=== PATIENT | female | born 1970 | race Caucasian/White ===

== ENCOUNTER → 2016-09-25 | Outpatient (CLI) | payer OTHER ==
[~2016-09-25] MED LIST: RIZA10TA18 PO
[2016-09-25 12:55] LABS: THYROID STIMULATING HORMONE 1.36 uIu/ml (0.300-4.500)
== END | disposition home or self-care (01) ==
LOC: C.LAB1850 11:07
PROVIDERS: ATTEND Psychiatry & Neurology Psychiatry
DX: F41.1 Generalized anxiety disorder (principal)

== ENCOUNTER → 2016-09-25 | Outpatient (CLI) | payer OTHER | END | disposition home or self-care (01) | LOC: C.PAPS 14:18 | PROVIDERS: ATTEND Physician Assistant | DX: Z12.4 Encounter for screening for malignant neoplasm of cervix (principal) ==

== ENCOUNTER → 2016-10-21 | Outpatient (CLI) | payer OTHER ==
--- NOTE | 2016-10-21 15:51 | MAMMOGRAPHY REPORT ---
BILATERAL DIGITAL SCREENING MAMMOGRAM TOMOSYNTHESIS WITH CAD: 10/21/2016 CLINICAL HISTORY: Routine screening. Patient has no complaints. TECHNIQUE: Breast tomosynthesis in addition to standard 2D mammography was performed. Current study was also evaluated with a Computer Aided Detection (CAD) system. COMPARISON: Comparison is made to exams dated: 08/22/2011 ultrasound and 08/22/2011 mammogram - [facility]. BREAST COMPOSITION: The tissue of both breasts is heterogeneously dense, which may obscure small mas ses. FINDINGS: No suspicious mass, architectural distortion or cluster of microcalcifications is seen. IMPRESSION: ACR BI-RADS CATEGORY 1: NEGATIVE There is no mammographic evidence of malignancy. A 1 year screening mammogram is recommended. The pa tient will receive written notification of the results. Approximately 10% of breast cancers are not detected with mammography. A negative mammographic report should not delay biopsy if a clinically suggestive mass is present. Miriam augustin/kyle:10/21/2016 15:31:42 Credit Verifier: Sherrell BLOCK(Sabine)(M), [facility] letter sent: Normal 1/2 BI-RADS Code: ACR BI-RADS Category 1: Negative
== END | disposition home or self-care (01) ==
LOC: C.MAMM 14:24
PROVIDERS: ATTEND Internal Medicine
DX: Z12.31 Encounter for screening mammogram for malignant neoplasm of breast (principal)

== ENCOUNTER 2017-03-11 17:07 | Emergency (ER) | payer OTHER ==
[2017-03-11 17:18] VITALS: TEMP 36.5
[2017-03-11] MEDS ORDERED: DiphenhydrAMINE HCL 50 MG/ML VIAL IV STA (17:39)
[2017-03-11] MEDS ORDERED: KETOROLAC TROMETHAMINE 30 MG/ML VIAL IV STA (17:39)
[2017-03-11] MEDS ORDERED: PROCHLORPERAZINE 5 MG/ML 2 ML VIAL IV STA (17:39)
[2017-03-11] MEDS ORDERED: LXP10 PO (17:50)
[2017-03-11] MEDS ORDERED: VLT50 PO (17:50)
--- NOTE | 2017-03-11 18:00 | DIAGNOSTIC IMAGING REPORT ---
HEAD WITHOUT CONTRAST (CT) CLINICAL HISTORY: 46 years-old Female with ESTRELLA . Acute headache. Initial exam. TECHNIQUE: Multiple axial CT images of the head were obtained without contrast. A dose lowering technique was utilized adhering to the principles of ALARA. CT DOSE: 537.48 mGy.cm COMPARISON: Brain MRI 02/02/2006. FINDINGS: No acute intracranial hemorrhage, midline shift, intracranial mass, hydrocephalus, territorial ischemia or abnormal extra-axial collection. The calvarium is intact. The paranasal sinuses, mastoid air cells, and middle ear cavities are clear. IMPRESSION: No acute intracranial abnormality. The above report was generated using voice recognition software. It may contain grammatical, syntax or spelling errors. Electronically signed by: John Brewer M.D. 03/11/2017 5:58 PM Dictated Date/Time: 03/11/2017 5:56 PM
[2017-03-11 19:17] VITALS: BP 123/80; PULSE 81; O2SAT 98
--- NOTE | 2017-03-11 23:14 | EMERGENCY ROOM VISIT NOTE ---
History Report prepared by Toyin: Terese De Anda Under the Supervision of: Junie RojasO. First contact with patient: 17:29 Chief Complaint: HEADACHE Stated Complaint: MIGRAINE History of Present Illness The patient is a 46 year old female who presents to the Emergency Room with complaints of a worsening headache beginning this morning. She reports a history of migraines and states that she gets them everyday. The patient reports that her headache today is much because she was unable to take her medicine. She notes that when she does not have this medicine this is how her migraines become. She states that she normally takes medicine for her migraines , but that she did not have the medication today. She reports that light and noise bothers her. The patient denies new numbness and weakness. She reports having the chills, but denies having changes in vision and fevers. No neck stiffness. Source of History: patient Onset: this morning Position: head Quality: other (headache) Timing: worsening Associated Symptoms: + chills, No fevers, No weakness, No numbness Review of Systems See HPI for pertinent positives & negatives. A total of 10 systems reviewed and were otherwise negative. Past Medical & Surgical Medical Problems: (1) Migraine Family History Patient reports no known family medical history. Social History Smoking Status: Never Smoker Alcohol Use: none Drug Use: none Marital Status: Occupation Status: unemployed Current/Historical Medications Scheduled Diclofenac Sod (Diclofenac Sodium Dr), 50 MG PO DAILY Escitalopram Oxalate (Escitalopram Oxalate), 10 MG PO DAILY Allergies Coded Allergies: Penicillins (Verified Allergy, Severe, RASH + SOB WITH AMPICILLIN/ PENICILLIN, 03/11/17) Acetaminophen (Verified Allergy, Mild, RASH, 03/11/17) Lidocaine (Verified Adverse Reaction, Intermediate, BRADYCARDIA, 03/11/17) Procaine (Verified Adverse Reaction, Intermediate, BRADYCARDIA, 03/11/17) Physical Exam Vital Signs Date Time Temp Pulse Resp B/P (MAP) Pulse Ox O2 Delivery O2 Flow Rate FiO2 03/11/17 19:17 81 18 123/80 98 03/11/17 17:18 36.5 74 18 148/83 98 Room Air Physical Exam GENERAL: Laying in bed on her left side with the lights off, alert, well appearing, well nourished, no distress, non-toxic EYE EXAM: normal conjunctiva. PERRL and EOM's intact. OROPHARYNX: no exudate, no erythema, lips, buccal mucosa, and tongue normal and mucous membranes are moist NECK: supple, no nuchal rigidity, no adenopathy, non-tender LUNGS: Clear to auscultation. Normal chest wall mechanics HEART: no murmurs, S1 normal and S2 normal ABDOMEN: abdomen soft, non-tender, normo-active bowel sounds, no masses, no rebound or guarding. BACK: Back is symmetrical on inspection and there is no deformity, no midline tenderness, no CVA tenderness. SKIN: no rashes and no bruising UPPER EXTREMITIES: upper extremities are grossly normal. LOWER EXTREMITIES: No pitting edema. NEURO EXAM: Normal sensorium, cranial nerves II-XII intact, normal speech, no weakness of arms, no weakness of legs. No drift. Finger to nose intact. Gross sensation intact. Medical Decision & Procedures ER Provider Diagnostic Interpretation: Radiology results as stated below per my review and the radiologist's interpretation: HEAD WITHOUT CONTRAST (CT) CLINICAL HISTORY: 46 years-old Female with ESTRELLA . Acute headache. Initial exam. TECHNIQUE: Multiple axial CT images of the head were obtained without contrast. A dose lowering technique was utilized adhering to the principles of ALARA. CT DOSE: 537.48 mGy.cm COMPARISON: Brain MRI 02/02/2006. FINDINGS: No acute intracranial hemorrhage, midline shift, intracranial mass, hydrocephalus, territorial ischemia or abnormal extra-axial collection. The calvarium is intact. The paranasal sinuses, mastoid air cells, and middle ear cavities are clear. IMPRESSION: No acute intracranial abnormality. The above report was generated using voice recognition software. It may contain grammatical, syntax or spelling errors. Electronically signed by: John Brewer M.D. 03/11/2017 5:58 PM Dictated Date/Time: 03/11/2017 5:56 PM Medications Administered Medications (Trade) Dose Ordered Sig/Shari Route Start Time Stop Time Status Last Admin Dose Admin Prochlorperazine Edisylate (Compazine Inj) 10 mg NOW STAT IV 03/11/17 17:39 03/11/17 17:41 DC 03/11/17 18:15 10 MG Diphenhydramine HCl (Benadryl Inj) 50 mg NOW STAT IV 03/11/17 17:39 03/11/17 17:41 DC 03/11/17 18:15 50 MG Ketorolac Tromethamine (Toradol Inj) 30 mg NOW STAT IV 03/11/17 17:39 03/11/17 17:41 DC 03/11/17 18:16 30 MG ED Course ED COURSE: Vital signs were reviewed and showed normal vitals. The patients medical record was reviewed The above diagnostic studies were performed and reviewed. ED treatments and interventions as stated above. 0: The patient was evaluated in room C3. A complete history and physical examination was performed. 1738: Ordered Toradol Inj 30 mg IV, Benadryl Inj 50 mg IV, Compazine Inj 10 mg IV. 183: I checked on the patient and she is feeling better. After I explained the risks and benefits of an LP, the patient declined. 1900: Upon reevaluation, the patient is feeling better. I discussed the findings and the treatment plan with the patient. She verbalizes agreement and understanding. She was discharged home. Medical Decision Differential Diagnosis includes but is not limited to headache, tension headache , cluster headache, migraine, subarachnoid hemorrhage, meningitis, mass, central venous thrombus, concussion, trauma and epidural/subdural hemorrhage. Patient is a 46-year-old female who presents to ER for migraine. She notes that she gets headaches every day. This headache is worse than her typical daily headaches. She has before in the past and it normally occurs when she does not have her medication runs out. She was unable to fill or take her medication today. She is unaware of exactly what it is. She is completely neurologically intact. No fevers. No signs meningitis or encephalitis. CT head was performed and was negative. She was given IV Benadryl, Compazine and fluids. She felt significant better. I discussed performing an LP with her to rule out possible bleed as she said this is worsening her typical daily headaches. She declined. Risk and benefits were explained. She was discharged to follow-up with her PCP and return with any worsening symptoms. Discussed with Pt concerning signs and symptoms to watch out for. Pt was instructed to follow up with their PCP and discussed with the patient their option to return to the ED at anytime for persistent or worsening symptoms. The appropriate anticipatory guidance and out-patient management, including indications for return to the emergency department, were explained at length to the patient and understood. Medication Reconcilliation Current Medication List: was personally reviewed by me Blood Pressure Screening Patient's blood pressure: Normal blood pressure Impression Primary Impression: Cephalgia Scribe Attestation The scribe's documentation has been prepared under my direction and personally reviewed by me in its entirety. I confirm that the note above accurately reflects all work, treatment, procedures, and medical decision making performed by me. Departure Information Dispostion Home / Self-Care Referrals Lori Nails M.D. (PCP) Forms HOME CARE DOCUMENTATION FORM, IMPORTANT VISIT INFORMATION Patient Instructions Headache Pain, My [facility] Additional Instructions Please follow up with your primary care doctor with in the next 24 hours. Any worsening of your symptoms, please return to the ED immediately. This includes any fevers greater than 100.4, worsening pain, weakness or numbness in your arms or legs, chest pain, shortness breath, persistent nausea, vomiting, unable to eat or drink, or any other concerning signs or symptoms from your standpoint. Please do not drive, work, operate heavy machinery for the next 12 hours. Problem Qualifiers Primary Impression: Cephalgia Headache type: unspecified Headache chronicity pattern: acute headache Intractability: not intractable Qualified Codes: R51 - Headache
== END 2017-03-11 19:18 | disposition home or self-care (01) ==
LOC: C.EDB 17:08 → C.EDC 19:18
DX: G44.009 Cluster headache syndrome, unspecified, not intractable (principal)

== ENCOUNTER 2017-03-18 13:42 | Emergency (ER) | payer OTHER ==
[~2017-03-18 13:42] MED LIST changes: +LXP10 PO; -RIZA10TA18 PO; +VLT50 PO
[2017-03-18 14:02] VITALS: TEMP 36.6
[2017-03-18] MEDS ORDERED: MELA1TAB5 PO (14:11)
[2017-03-18] MEDS ORDERED: KETOROLAC TROMETHAMINE 60 MG/2 ML VIAL IM STA (14:35)
--- NOTE | 2017-03-18 15:07 | EMERGENCY ROOM VISIT NOTE ---
ED Visit Note First contact with patient: 14:07 CHIEF COMPLAINT: "I think one of my discs has slipped" HISTORY OF PRESENT ILLNESS: This 46-year-old female patient presents to the emergency department, ambulatory, complaining of pain in the low back which began earlier today. Of note, the patient's primary language is [place], and the history is obtained through the opener tender. The patient has a history of herniated disks at L4 and L5. She states earlier today, she leaned over and lifted a 1 gallon bottle of water. She states she was not careful, and when she stood back up, she began experiencing significant pain. The patient states she is having difficulty with sitting from a lying position or standing from a sitting position, and these positional changes are the only time she has pain. The patient has no pain with lying flat, sitting straight, or standing and walking. The patient notes the pain as sharp and a 9/10. The patient has taken her regularly prescribed diclofenac without relief of the pain. The patient denies any loss of control of their bowel or bladder functions. There has been no leg numbness or weakness, and no change in sensation. The patient states on occasion, she will get some numbness and tingling radiating down her bilateral legs, but she is not experiencing any of this today. No nausea or vomiting or abdominal pain. No chest pain or shortness of breath. The patient has had prior back injuries. No dysuria or increased urinary frequency. The patient does see Dr. Nails regarding her chronic back pain. She was last seen last week, but that was for a migraine. REVIEW OF SYSTEMS: A 10 system review of systems was performed with positives and pertinent negatives listed in the history of present illness. All other systems were reviewed and are negative. ALLERGIES: Acetaminophen, lidocaine, procaine, penicillins MEDICATIONS: Diclofenac, Lexapro PMH: Migraines, chronic low back pain SOCIAL HISTORY: The patient lives locally with family. She denies drug, alcohol , tobacco use. PHYSICAL EXAM: VITALS: Vitals are noted on the nurse's note and reviewed by myself. Vital signs stable. GENERAL: This is a 46-year-old [place] female, in no acute distress, nondiaphoretic, well-developed well-nourished. SKIN: The skin was without rashes, erythema, edema, or bruising. Capillary refill less than 2 seconds. NECK: Supple without nuchal rigidity. No cervical spine tenderness. No paraspinous muscle tenderness. HEART: Regular rate and rhythm without murmurs gallops or rubs. LUNGS: Clear to auscultation bilaterally without wheezes, rales or rhonchi. ABDOMEN: Positive bowel sounds x 4. Normal tympanic percussion. Soft, nontender, without masses or organomegaly. Kasper sign negative. MUSCULOSKELETAL: No muscle atrophy, erythema, or edema noted of the back. There is no tenderness over the lumbar spinous processes. There is mild tenderness over the paraspinous muscles bilaterally, worse on the right. There is no tenderness over the thoracic spine or paraspinous muscles. There are no muscle spasms present. The patient is slow to move around with maximum tenderness with any position changes as noted above. Negative straight leg raise test. NEURO: Patient was alert and oriented to person place and time. Normal sensation to light and sharp touch. Deep tendon reflexes 2+ in the lower extremities. Dorsalis pedis pulse 2+ bilaterally. Strength 5/5 and equal in the bilateral lower extremities. RADIOLOGY: L-SPINE MIN 4 VIEWS ROUTINE HISTORY: 46 years-old Female low back pain acute low back pain COMPARISON: CT abdomen and pelvis 01/06/2008 TECHNIQUE: 5 views of the lumbar spine FINDINGS: No evidence of spondylolysis or spondylolisthesis. No acute fracture or subluxation. Moderate intervertebral disc space narrowing with endplate spurring at T11-T12. Mild multilevel endplate degenerative changes of the lumbar spine. Soft tissues are unremarkable. IMPRESSION: Mild degenerative changes about acute fracture or subluxation. The above report was generated using voice recognition software. It may contain grammatical, syntax or spelling errors. Electronically signed by: John Brewer M.D. 03/18/2017 3:13 PM Dictated Date/Time: 03/18/2017 3:07 PM EMERGENCY DEPARTMENT COURSE: The patient was seen and evaluated as above. She was given a dose of 60 mg Toradol IM. The patient was feeling modestly improved. I discussed the findings of the x-ray with the patient at bedside. She did not wish to use the opener tender at this time, and verbalized all of her understanding. The patient states she plans on seeing her psychiatrist tomorrow , who is [place] and generally spends time discussing findings from other providers with the patient. She states she will discuss her symptoms with him tomorrow. She was educated on concerning symptoms for which to return and again , verbalizes understanding. The patient will be started on a Medrol Dosepak and follow-up outpatient with Dr. Nails and consider follow-up with spine surgeon. Discharge instructions reviewed and the patient was discharged home in good condition. I attest that I have personally reviewed the patient's current medication list. Patient was found to have normal blood pressure on screening and does not require follow-up. DIFFERENTIAL DIAGNOSIS: Strain, fracture, disc protrusion, disc herniation, malignancy, abscess, infection, and others DIAGNOSIS: Lumbar strain Problem List Medical Problems: (1) Migraine Status: Chronic Current/Historical Medications Scheduled Diclofenac Sod (Diclofenac Sodium Dr), 50 MG PO DAILY Escitalopram Oxalate (Escitalopram Oxalate), 10 MG PO DAILY Melatonin (Kp Melatonin), 3 MG PO HS Methylprednisolone (Medrol Dosepak), 0 PO DAILY Allergies Coded Allergies: Penicillins (Verified Allergy, Severe, RASH + SOB WITH AMPICILLIN/ PENICILLIN, 03/11/17) Acetaminophen (Verified Allergy, Mild, RASH, 03/11/17) Lidocaine (Verified Adverse Reaction, Intermediate, BRADYCARDIA, 03/11/17) Procaine (Verified Adverse Reaction, Intermediate, BRADYCARDIA, 03/11/17) Vital Signs Date Time Temp Pulse Resp B/P (MAP) Pulse Ox O2 Delivery O2 Flow Rate FiO2 03/18/17 15:47 77 17 128/89 94 Room Air 03/18/17 14:02 36.6 89 18 130/81 97 Room Air Medications Administered Medications (Trade) Dose Ordered Sig/Shari Route Start Time Stop Time Status Last Admin Dose Admin Ketorolac Tromethamine (Toradol Inj) 60 mg NOW STAT IM 03/18/17 14:35 03/18/17 14:36 DC 03/18/17 14:53 60 MG Departure Information Impression Primary Impression: Strain of lumbar region Dispostion Home / Self-Care Condition GOOD Prescriptions Methylprednisolone (MEDROL DOSEPAK) 4 Mg Zafar 0 PO DAILY, #1 PKT Prov: Jenise Jarvis, JAM 03/18/17 Referrals Lori Nails M.D. (PCP) Jacob Nath, DO Patient Instructions ED Low Back Pain Injury, My [facility] Additional Instructions You have been treated in the Emergency Department for Back Pain. X-ray did rule out acute fracture or other injury. There was some moderate intervertebral disc space narrowing with endplate spurring at T11-T12. Mild multilevel endplate degenerative changes of the lumbar spine. These injuries appear to be chronic, however, you may need to have updated MRI performed outpatient. You should follow-up with Dr. Nails and/or a spine surgeon (one you have seen previously, or Dr. Nath). You have been prescribed a Medrol Dosepak. This is a steroid which will help decrease your inflammation and pain. Take the medicine as prescribed. Take the ENTIRE 6 day course of the steroids. Do not take NSAIDs such as diclofenac, ibuprofen, naproxen, Advil, Aleve, or Motrin while taking Medrol Dosepak. You may take Tylenol while on this medication. For pain control, you can use the following urql-phe-[id number] medicines (if >12 yo): Ibuprofen(Motrin, Advil) may be used for fever or pain. Use 600mg every six hours as needed. Take with food. Avoid using more than 2400mg in a 24 hour period. Do not use 2400mg per day for more than three consecutive days without physician direction. Prolonged inappropriate use can lead to stomach upset or ulcers. (AND/OR) Acetaminophen(Tylenol) may be used for fever or pain. Use 1000mg every six hours as needed. Avoid using more than 3000mg in a 24 hour period. If this is an acute injury, ice can be applied to the area of pain for the first 3 days to help decrease pain and inflammation. After the first 3 days, a heating pad can be used over the area for continued soothing relief. You should schedule a follow-up appointment in 2-3 days with your Primary Care Provider for further evaluation and treatment of your back pain. You may want to consider follow-up with a spine surgeon. You have been provided the information for a local spine surgeon. Return to the Emergency Department if your current symptoms worsen despite treatment course outlined above, or if you develop any of the following symptoms : intractable pain despite aforementioned treatment course, loss of control of your bowel or bladder, numbness or tingling in your groin, or development of a fever. Problem Qualifiers Primary Impression: Strain of lumbar region Encounter type: initial encounter Qualified Codes: S39.012A - Strain of muscle, fascia and tendon of lower back, initial encounter
--- NOTE | 2017-03-18 15:14 | DIAGNOSTIC IMAGING REPORT ---
L-SPINE MIN 4 VIEWS ROUTINE HISTORY: 46 years-old Female low back pain acute low back pain COMPARISON: CT abdomen and pelvis 01/06/2008 TECHNIQUE: 5 views of the lumbar spine FINDINGS: No evidence of spondylolysis or spondylolisthesis. No acute fracture or subluxation. Moderate intervertebral disc space narrowing with endplate spurring at T11-T12. Mild multilevel endplate degenerative changes of the lumbar spine. Soft tissues are unremarkable. IMPRESSION: Mild degenerative changes about acute fracture or subluxation. The above report was generated using voice recognition software. It may contain grammatical, syntax or spelling errors. Electronically signed by: John Brewer M.D. 03/18/2017 3:13 PM Dictated Date/Time: 03/18/2017 3:07 PM
[2017-03-18] MEDS ORDERED: METH4PAK PO (15:29)
[2017-03-18 15:47] VITALS: BP 128/89; PULSE 77; O2SAT 94
== END 2017-03-18 15:16 | disposition home or self-care (01) ==
LOC: C.EDB 13:44 → C.EDD 15:16
DX: S39.012A Strain of muscle, fascia and tendon of lower back, initial encounter (principal); X50.1XXA Overexertion from prolonged static or awkward postures, initial encounter; Y92.9 Unspecified place or not applicable; G43.909 Migraine, unspecified, not intractable, without status migrainosus; Z79.899 Other long term (current) drug therapy

== ENCOUNTER → 2017-03-25 | Outpatient (CLI) | payer OTHER ==
[~2017-03-25] MED LIST changes: +MELA1TAB5 PO; +METH4PAK PO
--- NOTE | 2017-03-25 12:00 | DIAGNOSTIC IMAGING REPORT ---
LUMBAR SPINE W/O CONTRAST CLINICAL HISTORY: 46 years-old Female presenting with ACUTE B/L LOWER BACK PAIN,RT SIDED SICATICA, lifting injury one week ago. TECHNIQUE: Multisequence, multiplanar MR imaging of the lumbar spine was performed without the use of intravenous contrast. IV contrast: None. COMPARISON: Plain radiographs of the lumbar spine from 03/18/2017. FINDINGS: Localizer images: Unremarkable. Normal lumbar lordosis. Vertebral bodies maintain normal height, alignment, and bone marrow signal intensity with the exception of benign hemangiomas noted in L1, L4, and L5. Intervertebral disc desiccation at L2-3 through L4-5. Annular fissures suggested at L3-4 and L4-5. No evidence of acute fracture or subluxation. Degenerative changes further detailed below: L1-2: No significant neural foraminal or spinal canal narrowing. L2-3: Minimal disc bulge. No significant neural foraminal or spinal canal narrowing. L3-4: Minimal disc bulge. No significant neural foraminal or spinal canal narrowing. L4-5: Minimal disc bulge and ligamentum flavum hypertrophy. Mild bilateral neural foraminal narrowing. No evidence of mass effect on the exiting L4 nerve roots. L5-S1: No significant neural foraminal or spinal canal narrowing. The spinal cord ends in good position at L1. Cauda equina normal in morphology. No epidural collection. Paraspinal soft tissues without evidence of edema or significant abnormality allowing for noncontrast technique. IMPRESSION: Minimal multilevel degenerative changes with mild bilateral neural foraminal narrowing at L4-5. No evidence of acute osseous or ligamentous injury. Electronically signed by: Sukumar Caldwell M.D. 03/25/2017 11:59 AM Dictated Date/Time: 03/25/2017 11:54 AM
== END | disposition home or self-care (01) ==
LOC: C.MRI 10:45
PROVIDERS: ATTEND Internal Medicine
DX: M54.41 Lumbago with sciatica, right side (principal); G89.29 Other chronic pain

== ENCOUNTER 2017-08-08 22:20 | Emergency (ER) | payer OTHER ==
[~2017-08-08] VITALS: Ht 180.3 cm; Wt 76.9 kg
[~2017-08-08 22:20] MED LIST changes: -METH4PAK PO
[2017-08-08 22:23] VITALS: TEMP 36.4; Ht 180.3 cm; Wt 76.9 kg
[2017-08-08 23:27] LABS: BASO % 0.3 %; BASO ABS # 0.02 K/uL (0-0.2); HEMATOCRIT 37.9 % (37-47); HEMOGLOBIN 13.2 g/dL (12.0-16.0); IG# 0.01 K/uL (0.00-0.02); LYMPH % 16.4 %; LYMPH ABS # 1.08 K/uL (1.2-3.4); MEAN CELL VOLUME 92.2 fL (80-100); MEAN CORPUSCULAR HEMOGLOBIN 32.1 pg (25-34); MEAN CORPUSCULAR HGB CONC 34.8 g/dl (32-36); MEAN PLATELET VOLUME 10.1 fL (7.4-10.4); MONO % 6.4 %; MONO ABS # 0.42 K/uL (0.11-0.59); NEUT % 76.7 %; NEUT ABS # 5.07 K/uL (1.4-6.5); PLATELET COUNT 256 K/uL (130-400); RED CELL DISTRIBUTION WIDTH CV 13.5 % (11.5-14.5); RED CELL DISTRIBUTION WIDTH SD 45.4 fL (36.4-46.3)
[2017-08-08 23:47] LABS: ALBUMIN 3.8 gm/dl (3.4-5.0); CREATININE 0.74 mg/dl (0.60-1.20); POTASSIUM 3.4 mmol/L (3.5-5.1)
[2017-08-08 23:57] LABS: TOTAL PROTEIN 8.3 gm/dl (6.4-8.2)
[2017-08-09] MEDS ORDERED: LORAZEPAM 1 MG TAB PO STA (00:47)
--- NOTE | 2017-08-09 01:41 | EMERGENCY ROOM VISIT NOTE ---
History First contact with patient: 22:35 Chief Complaint: ANXIETY Stated Complaint: PAINC ATTACK History of Present Illness The patient is a 46 year old female who presents to the Emergency Room with complaints of a panic attack. The patient reports that she feels like she has had panic attacks throughout the day today. She describes these as a feeling like she is unable to calm down. She also develops tightness in the center of her chest. She has had a dry mouth and has had a decreased appetite. She becomes nauseous at times. She took her blood pressure at home and it was 125/ 82, which the patient states is high for her. She does state that her symptoms resolved before coming to the ER, although she does still feel slightly anxious. She reports increased stress recently, as a close friend's son recently . She is also concerned that she could have diabetes or something else causing her to feel the symptoms. She does admit to a history of anxiety and depression but is not currently on any daily medication for this. She denies feeling increasingly depressed. She adamantly denies suicidal or homicidal ideations. Review of Systems A complete 10 point review of systems was reviewed with the patient with pertinent positives and negatives as per history of present illness. All else were negative. Past Medical/Surgical History Medical Problems: (1) Migraine Family History Patient reports no known family medical history. Social History Smoking Status: Never Smoker Alcohol Use: none Drug Use: none Marital Status: Occupation Status: unemployed Current/Historical Medications Scheduled Diclofenac Sod (Diclofenac Sodium Dr), 50 MG PO DAILY Escitalopram Oxalate (Escitalopram Oxalate), 10 MG PO DAILY Melatonin (Kp Melatonin), 3 MG PO HS Physical Exam Vital Signs Date Time Temp Pulse Resp B/P (MAP) Pulse Ox O2 Delivery O2 Flow Rate FiO2 08/09/17 01:58 86 20 129/77 95 Room Air 08/08/17 23:53 86 20 136/81 98 Room Air 08/08/17 22:23 36.4 82 18 134/83 97 Room Air Physical Exam VITALS: Vitals are noted on the nurse's note and reviewed by myself. Vital signs stable. GENERAL: This is a 46-year-old female, in no acute distress but anxious appearing, well-developed well-nourished. SKIN: The skin was without rashes. HEAD: Normocephalic atraumatic. EARS: External auditory canals clear, tympanic membranes pearly mcmahon without erythema or effusion bilaterally. EYES: Pupils equal round and reactive to light and accommodation. Extraocular movements intact. MOUTH: Mucous membranes moist. Tonsils are not enlarged. Pharynx without erythema or exudate. NECK: Supple without nuchal rigidity. No lymphadenopathy. HEART: Regular rate and rhythm without murmurs gallops or rubs. LUNGS: Clear to auscultation bilaterally without wheezes, rales or rhonchi. NEURO: Patient was alert and oriented to person place and time. Medical Decision & Procedures Laboratory Results 08/08/17 23:11 Red Blood Count 4.11, Mean Corpuscular Volume 92.2, Mean Corpuscular Hemoglobin 32.1, Mean Corpuscular Hemoglobin Concent 34.8, Mean Platelet Volume 10.1, Neutrophils (%) (Auto) 76.7, Lymphocytes (%) (Auto) 16.4, Monocytes (%) (Auto) 6.4, Eosinophils (%) (Auto) 0.0, Basophils (%) (Auto) 0.3, Neutrophils # (Auto) 5.07, Lymphocytes # (Auto) 1.08, Monocytes # (Auto) 0.42, Eosinophils # (Auto) 0.00, Basophils # (Auto) 0.02 08/08/17 23:11 Test 08/08/17 23:00 08/08/17 23:11 08/08/17 23:55 Urine Test NEG (NEG) White Blood Count 6.60 K/uL (4.8-10.8) Red Blood Count 4.11 M/uL (4.2-5.4) Hemoglobin 13.2 g/dL (12.0-16.0) Hematocrit 37.9 % (37-47) Mean Corpuscular Volume 92.2 fL (80-100) Mean Corpuscular Hemoglobin 32.1 pg (25-34) Mean Corpuscular Hemoglobin Concent 34.8 g/dl (32-36) Platelet Count 256 K/uL (130-400) Mean Platelet Volume 10.1 fL (7.4-10.4) Neutrophils (%) (Auto) 76.7 % Lymphocytes (%) (Auto) 16.4 % Monocytes (%) (Auto) 6.4 % Eosinophils (%) (Auto) 0.0 % Basophils (%) (Auto) 0.3 % Neutrophils # (Auto) 5.07 K/uL (1.4-6.5) Lymphocytes # (Auto) 1.08 K/uL (1.2-3.4) Monocytes # (Auto) 0.42 K/uL (0.11-0.59) Eosinophils # (Auto) 0.00 K/uL (0-0.5) Basophils # (Auto) 0.02 K/uL (0-0.2) RDW Standard Deviation 45.4 fL (36.4-46.3) RDW Coefficient of Variation 13.5 % (11.5-14.5) Immature Granulocyte % (Auto) 0.2 % Immature Granulocyte # (Auto) 0.01 K/uL (0.00-0.02) Anion Gap 8.0 mmol/L (3-11) Est Creatinine Clear Calc Drug Dose 108.4 ml/min Estimated GFR () 114.2 Estimated GFR (Non- 98.5 BUN/Creatinine Ratio 6.1 (10-20) Calcium Level 9.0 mg/dl (8.5-10.1) Total Bilirubin 0.6 mg/dl (0.2-1) Aspartate Amino Transf (AST/SGOT) 15 U/L (15-37) Alanine Aminotransferase (ALT/SGPT) 16 U/L (12-78) Alkaline Phosphatase 45 U/L (45-117) Total Protein 8.3 gm/dl (6.4-8.2) Albumin 3.8 gm/dl (3.4-5.0) Globulin 4.5 gm/dl (2.5-4.0) Albumin/Globulin Ratio 0.9 (0.9-2) Thyroid Stimulating Hormone (TSH) 1.140 uIu/ml (0.300-4.500) Urine Color YELLOW Urine Appearance CLEAR (CLEAR) Urine pH 6.5 (4.5-7.5) Urine Specific [place] 1.006 (1.000-1.030) Urine Protein NEG (NEG) Urine Glucose (UA) NEG (NEG) Urine Ketones NEG (NEG) Urine Occult Blood NEG (NEG) Urine Nitrite NEG (NEG) Urine Bilirubin NEG (NEG) Urine Urobilinogen NEG (NEG) Urine Leukocyte Esterase NEG (NEG) Medications Administered Medications (Trade) Dose Ordered Sig/Shari Route Start Time Stop Time Status Last Admin Dose Admin Lorazepam (Ativan Tab) 1 mg NOW STAT PO 08/09/17 00:47 08/09/17 00:49 DC 08/09/17 01:08 1 MG Lorazepam (Ativan 1MG Home Pack) 1 homepack UD ONCE PO 08/09/17 01:45 08/09/17 01:46 DC 08/09/17 01:48 1 HOMEPACK ECG Per My Interpretation Indication: other Rate (beats per minute): 68 Rhythm: normal sinus Findings: no acute ischemic change, other (incomplete RBBB) Comparison ECG Date: incomplete RBBB new from most recent EKG, but has been present on previous ED Course The patient was evaluated as above. Labs were drawn and IV access was obtained. The patient was reevaluated and findings were discussed. She has become very anxious. She was agreeable to trying Ativan for his symptoms. She was given 1 mg Ativan sublingually. The patient was reevaluated and is feeling much better. She has been praying with one of the nurses and states that she is feeling much more calm at this time. She would like to be discharged home. Discharge instructions were reviewed with the patient. The patient verbalized understanding of my assessment and treatment plan and was discharged home in good condition. Medical Decision Differential diagnosis includes anxiety, anemia, thyroid disorder, electrolyte abnormality, dehydration, arrhythmia,among others. The patient is a 46-year-old female who presents today complaining of anxiety and panic attacks. Labs revealed no leukocytosis, anemia or concerning electrolyte abnormalities. Urinalysis was not suggestive of infection. Urine was negative. EKG was interpreted by myself and shows a normal sinus rhythm with incomplete right bundle branch block. The patient admits to increased stress recently and has felt very anxious regarding this. She does describe symptoms which seem to be consistent with panic attacks. Her symptoms did resolve with administration of Ativan. I offered the patient mental health evaluation but she declined at this time. She is not feeling depressed and does not have any suicidal or homicidal ideations. She plans to follow with her primary care provider on Thursday. I do feel the patient is here to be discharged home. She was given a home pack of Ativan to be used as needed for severe anxiety until she is able to follow-up. Based on the patient's presentation and work up, I feel the patient is stable for outpatient treatment. The patient was educated to return to the emergency department for any worsening of their current condition or new/concerning symptoms. She will follow up with her PCP. Medication Reconcilliation Current Medication List: was personally reviewed by me Blood Pressure Screening Patient's blood pressure: Normal blood pressure Impression Primary Impression: Anxiety Departure Information Dispostion Home / Self-Care Condition GOOD Referrals Maggy ELLIS M.D. (PCP) Patient Instructions My [facility] Additional Instructions You may take the lorazepam (Ativan) every 6-8 hours as needed for anxiety/panic attacks. Contact your primary care provider first thing Thursday to schedule a follow up. We are here if you feel like you are getting worse or feel increasingly depressed, have any thoughts of hurting yourself or others, or for any further concerns.
[2017-08-09] MEDS ORDERED: ATIVAN 1MG HOMEPACK PO ONE (01:45)
[2017-08-09 01:58] VITALS: BP 129/77; PULSE 86; O2SAT 95
== END 2017-08-09 02:01 | disposition home or self-care (01) ==
LOC: C.EDB 22:21
DX: F41.9 Anxiety disorder, unspecified (principal)